=== PATIENT | male | born 1980 | race Caucasian/White ===

== ENCOUNTER 2019-04-07 13:50 | Emergency (ER) | payer BC ==
--- OUTSIDE RECORDS SUMMARY | 2019-04-07 13:54 | XMS REPORT | Continuity of Care Document ---
:1980 External Reference #:[id number] Author Name Alvin Bean M.D. Address [address] [place] [address] Care Team Providers Name Role Phone Cleveland Heller M.D. 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 Onset: 03/07/2017 Regular astigmatism Coty Blackmon O.D. 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 Suspension Systane about every hour Coty Blackmon, 02/13/2017 0.4-0.3% Gel O.D. Metoprolol Tartrate Take One Tablet Unknown 50mg By Mouth Twice A Tablets Day Multivitamin Men Unknown Tablets Hydrocodone-Acetaminoph Unknown en 5-325mg Tablets Ibuprofen as needed Unknown 200mg Capsules Gabapentin Unknown 300mg Capsules History Medications Acyclovir 1 tab twice a 120tabs B02.33 Alvin Bean, 01/09/2019 - 400mg day by mouth M.D. 02/12/2019 Tablets Acyclovir take one pill, 30tabs B02.33 Alvin Bean, 01/02/2019 - 800mg five times per M.D. 03/19/2019 Tablets day for 10days Erythromycin apply thin 7gm B02.33 Coty Blackmon, 12/25/2018 - 5mg/GM strip to right O.D. 01/08/2019 Ointment eye at night Valacyclovir HCL 1 by mouth 30tabs Alvin Bean, 12/25/2018 - 1gm every 8 hours M.D. 01/08/2019 Tablets Prednisolone Acetate 1 drop right 1units B02.33 Coty Blackmon, 2018 - eye two times a O.D. 12/25/2018 1% Suspension day Valacyclovir HCL 1 by mouth 30tabs Alvin Bean, 11/26/2018 - 1gm every 8 hours M.D. 12/24/2018 Tablets for 10 days Zirgan 1 drop right 5gm B00.52 Coty Blackmon, 02/14/2017 - 0.15% Gel eye 2 times O.D. 11/25/2018 daily Erythromycin apply thin 1Tubes B02.33 Coty Blackmon, 02/13/2017 - 5mg/GM strip to right O.D. 02/18/2017 Ointment eye before bed or as needed Valacyclovir HCL Unknown - 1gm 11/25/2018 Tablets Condylox Apply A Thin Unknown - 0.5% Gel Layer Two Times 11/25/2018 A Day For 3 Days Then Off For 4 Days MA Tramadol HCL Take One To Two Unknown - 50mg Tablets By 11/25/2018 Tablets Mouth Every 6 Hours as Needed Maximum Daily Amoxicillin/Clavulan Unknown - ate Potassium 12/26/2018 875-125mg Tablets Lisinopril Unknown - 5mg 12/26/2018 Tablets Immunizations Description No Information Available Vital Signs Description No Information Available Results Description No Information Available Procedures Date Code Description Status 02/13/2019 37237 Determination Of Refractive State Completed 12/10/2018 84569 Determination Of Refractive State Completed 11/26/2018 10997 Est Patient Comprehensive Exam Completed 03/07/2017 26474 Determination Of Refractive State Completed 02/13/2017 51282 New Patient Intermediate Exam Completed Encounters Type Date Location Provider Dx Diagnosis Office Visit 02/13/2019 Alvin Palma B02.33 Zoster keratitis 8:15a helena PRATER M.D. Office Visit 01/30/2019 Alvin Palma B02.33 Zoster keratitis 8:30a helena PRATER M.D. Office Visit 01/09/2019 Alvin Palma B02.33 Zoster keratitis 9:00a helena PRATER M.D. Office Visit 01/02/2019 Alvin Palma B02.33 Zoster keratitis 8:15a helena PRATER M.D. Office Visit 12/27/2018 Coty Palma B02.33 Zoster keratitis 10:00a helena PRATER O.D. Office Visit 12/26/2018 Coty Palma B02.33 Zoster keratitis 12:45p helena PRATER O.D. Office Visit 12/25/2018 Coty Palma B02.33 Zoster keratitis 11:30a helena PRATER O.D. Office Visit 12/10/2018 Coty Palma B02.33 Zoster keratitis 11:45a helena PRATER O.D. Office Visit 12/03/2018 Coty Palma B02.33 Zoster keratitis 1:00p helena PRATER O.D. Office Visit 11/28/2018 Coty Palma B02.33 Zoster keratitis 1:45p helena PRATER O.D. Office Visit 03/07/2017 Coty Palma, B00.52 Herpesviral 4:00p , helena Díaz keratitis H52.11 Myopia, right eye H52.221 Regular astigmatism, right eye Office Visit 02/23/2017 8:15a Mau Blackmon, B00.52 Herpeseric Ramirez MD, helena Díaz keratitis Office Visit 02/19/2017 8:30a Mau Price B00.52 Herpeseric Ramirez MD, helena Fink O.D. keratitis Office Visit 02/14/2017 9:15a Mau Blackmon, B00.52 Herpeseric Ramirez MD, helena Díaz keratitis Plan of Treatment 03/20/2019 - Alvin Bean M.D.B02.33 Zoster keratitisComments:Smoking can increase the risk of developing or worsening any eye related disease, as well as affect your overall health. If you are a smoker, we strongly recommend that you quit.If you are not a smoker, we strongly recommend that you do not start. DECREASE THE PREDNISOLONE DROP TO 1 DROP 2 TIMES A DAY TO THE RIGHT EYE FOR 1 MONTH.THEN DECREASE TO 1 DROP ONCE A DAY TO THE RIGHT EYE FOR 1 MONTH.CONTINUE TO TAKE THE ACYCLOVIR 800 MG DAILYI WILL FOLLOW UP WITH YOU IN 2 MONTHS.Follow up:2 Month Follow Up CORNEA CHECK At your next visit, we are not planning to dilate your eyes. However, if you have any changes in your vision or new symptoms, there are certain situations that require us to dilate your eyes. If Dr. Bean requests any additional testing, that may require extra time. If you have any questions before your next appointment, please call our office at [phone].
[2019-04-07 14:09] VITALS: BP 113/74
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
== END 2019-04-07 15:12 | disposition home or self-care (01) ==
LOC: UCEAST 13:50
DX: R09.81 Nasal congestion (principal); J34.89 Other specified disorders of nose and nasal sinuses; T63.481A Toxic effect of venom of other arthropod, accidental (unintentional), initial encounter; Y92.9 Unspecified place or not applicable; I10 Essential (primary) hypertension; F17.210 Nicotine dependence, cigarettes, uncomplicated
CPT/HCPCS: 99211; G0463

== ENCOUNTER 2019-05-22 08:48 | Emergency (ER) | payer BC ==
--- OUTSIDE RECORDS SUMMARY | 2019-05-22 08:54 | XMS REPORT | Continuity of Care Document ---
:1980 External Reference #:[id number] Author Name Alvin Bean M.D. Address [address] [place] [address] Care Team Providers Name Role Phone Cleveland Heller M.D. 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 Onset: 03/07/2017 Regular astigmatism Coty [...] Use Denies Drug Use Smoking Status Reviewed: 05/22/19 Patient is a former cigars/ chewing smoker [...] Tablets Lisinopril Unknown - 5mg 12/26/2018 Tablets Procedures Date Code Description Status 02/13/2019 01164 Determination Of Refractive State Completed 12/10/2018 63884 Determination Of Refractive State Completed 11/26/2018 82654 Est Patient Comprehensive Exam Completed 03/07/2017 48022 Determination Of Refractive State Completed 02/13/2017 88007 New Patient Intermediate Exam Completed Encounters Type Date Location Provider Dx Diagnosis Office Visit 03/20/2019 Alvin Palma B02.33 Zoster keratitis 8:45a helena PRATER M.D. Office Visit 02/13/2019 Alvin Palma B02.Jatin Zoster keratitis 8:15a helena PRATER M.D. Office Visit 01/30/2019 Alvin Palma B02.33 Zoster keratitis 8:30a helena PRATER M.D. Office Visit 01/09/2019 Alvin Palma B02.33 Zoster keratitis 9:00a helena PRATER M.D. Office Visit 01/02/2019 Alvin Palma B02.33 Zoster keratitis 8:15a helena PRATER M.D. Office Visit 12/27/2018 Coty Palma, B02.33 Zoster keratitis 10:00a helena PRATER O.D. [...] 11/28/2018 Coty Palma B02.33 Zoster keratitis 1:45p , helena Massey.Hero. Office Visit 03/07/2017 Mau Coty Garcia, B00.52 Herpesviral 4:00p , helena Peguero. keratitis H52.11 Myopia, right eye H52.221 Regular astigmatism, right eye Office Visit 02/23/2017 8:15a Mau Blackmon B00.52 Reggie Ramirez MD, helena Massey.Serena keratitis Office Visit 02/19/2017 8:30a Mau Price B00.52 Reggie Ramirez MD, helena Fink O.D. keratitis Office Visit 02/14/2017 9:15a Mau Blackmon B00.52 Reggie Ramirez MD, helena Massey.Serena keratitis Plan of Treatment 05/22/2019 - Alvin Bean M.D.B02.33 Zoster keratitisComments:Smoking can increase the risk of developing or worsening any eye related disease, as well as affect your overall health. If you are a smoker, we strongly recommend that you quit.If you are not a smoker, we strongly recommend that you do not start. USE THE PREDNISOLONE DROP: 1 DROP EVERY OTHER DAY FOR 3 WEEKS. THEN STOP THE DROPS. CONTINUE TO TAKE THE ACYCLOVIR 800 MG DAILY.Follow up:1 Month Follow Up CORNEA CHECK - DIAGNOSTIC REFRACTION At your next visit, we are not planning to dilate your eyes. However, if you have any changes in your vision or new symptoms, there are certain situations that require us to dilate your eyes. If Dr. Bean requests any additional testing, that may require extra time. If you have any questions before your next appointment, please call our office at .
[2019-05-22 09:12] VITALS: BP 144/101
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
== END 2019-05-22 10:20 | disposition home or self-care (01) ==
LOC: UCEAST 08:48
DX: S90.212A Contusion of left great toe with damage to nail, initial encounter (principal); S90.32XA Contusion of left foot, initial encounter; W20.8XXA Other cause of strike by thrown, projected or falling object, initial encounter; Y92.9 Unspecified place or not applicable; Z87.891 Personal history of nicotine dependence
CPT/HCPCS: 99212; G0463